=== PATIENT | male | born 1990 | race Caucasian/White ===

== ENCOUNTER 2017-04-02 17:42 | Inpatient (IN) | payer MEDICAID, OTHER ==
[~2017-04-02] VITALS: Ht 180.3 cm; Wt 84.0 kg
[2017-04-02] MEDS ORDERED: ALBU8HFA IH (17:58)
[2017-04-02] MEDS ORDERED: OMEP10 PO (17:58)
[2017-04-02 19:39] LABS: AMPHET/METH SCREEN,URINE NEGATIVE (NEGATIVE); BARBITURATE SCREEN, URINE NEGATIVE (NEGATIVE); BENZODIAZEPINES SCREEN,URINE NEGATIVE (NEGATIVE); CANNABINOID SCREEN,URINE POSITIVE (NEGATIVE); COCAINE SCREEN,URINE NEGATIVE (NEGATIVE); METHADONE SCREEN, URINE NEGATIVE (NEGATIVE); OPIATE SCREEN,URINE NEGATIVE (NEGATIVE)
[2017-04-02 19:40] LABS: PHENCYCLIDINE SCREEN,URINE NEGATIVE (NEGATIVE)
[2017-04-02 19:46] LABS: ANION GAP 8 mmol/L (8-16); CARBON DIOXIDE 30 mmol/L (22-29); CHLORIDE 107 mmol/L (98-107); CREATININE 1.04 mg/dL (0.60-1.30); GLOMERULAR FILTR. RATE CALC > 60 mL/min (>60); GLUCOSE,RANDOM 96 mg/dL (70-110); POTASSIUM 4.1 mmol/L (3.5-5.1); SODIUM SERUM 145 mmol/L (136-145); UREA NITROGEN, BLOOD 12 mg/dL (7-18)
[2017-04-02 19:52] LABS: ALANINE AMINOTRANSFERASE 21 U/L (12-78); ALBUMIN 4.1 g/dL (3.4-5.0); ALKALINE PHOSPHATASE 52 U/L (46-116); ASPARTATE AMINOTRANSFERASE 12 U/L (15-37); BILIRUBIN,TOTAL 0.2 mg/dL (0.1-1.0); TOTAL PROTEIN, SERUM 7.4 g/dL (6.4-8.2)
[2017-04-02 20:09] LABS: BASOPHILS % (AUTO) 0.4 % (0.0-2.0); EOSINOPHILS % (AUTO) 1.5 % (1.0-6.0); HEMATOCRIT 41.3 % (41-53); HEMOGLOBIN 13.9 g/dL (13.5-17.5); LYMPHOCYTES # (AUTO) 2.4 K/uL (1.0-4.8); LYMPHOCYTES % (AUTO) 23.5 % (22.0-44.0); MEAN CORPUSCULAR HEMOGLOBIN 26.3 pg (26.0-34.0); MEAN CORPUSCULAR HGB CONC 33.5 G/dL (31.0-37.0); MEAN CORPUSCULAR VOLUME 79 fL (80-100); MONOCYTES # (AUTO) 0.7 K/uL (0.1-1.0); MONOCYTES % (AUTO) 7.4 % (2.0-9.0); NEUTROPHILS # (AUTO) 6.8 K/uL (1.8-7.7); NEUTROPHILS % (AUTO) 67.2 % (40.0-70.0); PLATELET COUNT (AUTO) 224 K/uL (150-450); RED BLOOD CELL COUNT(AUTO) 5.27 MIL/uL (4.50-5.90); RED CELL DISTRIBUTION WIDTH 13.7 % (11.5-14.5)
[2017-04-02] MEDS ORDERED: HALOPERIDOL 5 MG TABLET PO PRN (21:15)
[2017-04-03 01:37] VITALS: BP 123/61
[2017-04-03 01:38] VITALS: BP 123/61
[2017-04-03] MEDS: ZOLPIDEM TARTRATE 10 MG TABLET PO PRN ×2 (02:22→21:05)
[2017-04-03] MEDS: LORazepam 2 MG TABLET PO PRN (02:23)
[2017-04-03] MEDS ORDERED: INFLUENZA VIRUS VACCINE QVS 2017-18 (3YR+)/PF 60 MCG/0.5 ML SYRINGE IM ONE (02:30)
[2017-04-03 08:43] VITALS: BP 119/74
[2017-04-03 09:00] VITALS: BP 119/74
[2017-04-03 09:45] LABS: CHOL/HDL RATIO 2.8 (4.2-7.3)
[2017-04-03] MEDS: PANTOPRAZOLE SODIUM 40 MG DR TABLET PO SCH (09:54)
[2017-04-03] MEDS: SERTRALINE HCL 50 MG TABLET PO SCH (12:40)
[2017-04-03 16:03] VITALS: BP 123/69
[2017-04-04 06:30] VITALS: BP 121/70
[2017-04-04 08:35] VITALS: BP 124/71
[2017-04-04] MEDS: SERTRALINE HCL 50 MG TABLET PO SCH (08:45)
[2017-04-04] MEDS: PANTOPRAZOLE SODIUM 40 MG DR TABLET PO SCH (08:45)
[2017-04-04 16:15] VITALS: BP 138/83
[2017-04-04] MEDS: LORazepam 2 MG TABLET PO PRN (17:23)
[2017-04-04] MEDS: ZOLPIDEM TARTRATE 10 MG TABLET PO PRN (20:55)
[2017-04-05 01:28] VITALS: BP 124/66
[2017-04-05] MEDS: PANTOPRAZOLE SODIUM 40 MG DR TABLET PO SCH (08:31)
[2017-04-05] MEDS: SERTRALINE HCL 50 MG TABLET PO SCH (08:31)
[2017-04-05] MEDS: LORazepam 2 MG TABLET PO PRN (08:32)
[2017-04-05 09:02] VITALS: BP 116/66
[2017-04-05] MEDS ORDERED: PANT40TA25 PO (10:06)
[2017-04-05] MEDS ORDERED: SERT50TA12 PO (10:06)
== END 2017-04-05 15:14 | disposition home or self-care (01) | DRG 751 ==
LOC: EMS 17:44 → B2S 22:00
PROVIDERS: ADMIT Psychiatry & Neurology Child & Adolescent Psychiatry; ATTEND Psychiatry & Neurology Child & Adolescent Psychiatry
PROC: 3E0234Z Introduction of Serum, Toxoid and Vaccine into Muscle, Percutaneous Approach (ICD-10-PCS; principal; 2017-04-03)
DX: F33.2 Major depressive disorder, recurrent severe without psychotic features (principal); R45.851 Suicidal ideations; F12.10 Cannabis abuse, uncomplicated; J45.909 Unspecified asthma, uncomplicated; K21.9 Gastro-esophageal reflux disease without esophagitis; Z79.899 Other long term (current) drug therapy; Z23 Encounter for immunization
CPT/HCPCS: 99285; G0480